=== PATIENT | female | born 1980 | race Caucasian/White ===

== ENCOUNTER 2018-01-21 17:06 | Outpatient (REF) | payer BC, SELFPAY ==
--- NOTE | 2018-01-21 14:45 | PAPFT_PTH ---
PATIENT: Mago Frost LOC: [facility] U#:[id number] AGE/SX: 37/F ROOM: RE01/21/[address]: Sofia Gann NP : 1980 BED: DIS: 01/21/2018 SPEC #: [id number] RECD: 01/21/18 17:17 STATUS: JOSLYN REMargarita #: [id number] TIKI: 01/21/18 14:[address]: Sofia Gann NP DEPT: [facility] Cytology RECD BY: Polina Hong ENTERED: 01/21/18 17:18 SP TYPE: PAPFT OTHR DR: Kaelyn Mckeon MD Tissues: 1 - CX/ENDOCX FOR PAP SMEARS Procedures: PAP THIN PREP/UVM Screening HPV DNA PROBE Comments: [id number]
== END 2018-01-21 17:26 ==
LOC: LBN 17:06
PROVIDERS: PCP Internal Medicine; Referring Provider Nurse Practitioner Women's Health; Visit Provider Nurse Practitioner Women's Health
DX: Z12.4 Encounter for screening for malignant neoplasm of cervix (principal); Z11.51 Encounter for screening for human papillomavirus (HPV)
CPT/HCPCS: 88142; 87624

== ENCOUNTER 2019-06-30 18:55 | Outpatient (REF) | payer BC, SELFPAY | END 2019-06-30 19:15 | LOC: NCHCN 18:55 | PROVIDERS: PCP Nurse Practitioner; Visit Provider Nurse Practitioner Adult Health | DX: J02.9 Acute pharyngitis, unspecified (principal) | CPT/HCPCS: 87070 ==

== ENCOUNTER 2020-01-20 13:59 | Emergency (ER) | payer BC, SELFPAY ==
[2020-01-20 14:10] VITALS: BP 142/97; PULSE 103; RESP 16; TEMP 37.2; O2SAT 100
--- NOTE | 2020-01-20 14:14 | W.ED.GENAD ---
Discharge Plan Disposition Patient Disposition: HOME Condition: Stable Discharge Details Clinical Impression: Closed fracture of distal end of left fibula Primary Care Provider: Marti Perales ED Provider: Ga Gann Home Meds and New Rx's Prescriptions: Continued Mirena 20 mcg/24 hr (5 years) intrauterine device 1 insert IY ONCE Qty: 1 RF: 0 acyclovir 400 mg tablet 400 mg PO BID Qty: 14 RF: 6 acetaminophen 325 MG tablet 325 mg PO PRN PRNRF: 0 omeprazole 20 mg capsule,delayed release(DR/EC) 20 mg PO DAILY Qty: 90 RF: 0 Discharge Instructions Instructions: Leg Fracture (ED) Additional Instructions: call orthopedics for an appointment take 1000mg tylenol and 600mg ibuprofen every 6 hours as needed for pain if severe worsening pain or new pain such as chest pain, abdominal pain or headaches return to the emergency department Referrals: David Champagne MD [ [facility] STAFF PHYSICIAN] - Medical Decision Making 39 yo female who comes in with chief complaint of left ankle pain. Was [place] and stepped into a little incline and tripped causing her to invert the left ankle. Did not hit head or have loc. HAs pain over lateral malleolus, no significant visible or palpable deformity, no significant swelling, does have full rom though with pain. No tenderness in the foot, normal sensation and pulses. Suspect sprain but will xray to evaluate for fx/dislocation xray shows langford a fracture of distal fibula, remains stable and has full rom still. Placed in walking boot and prn crutches and will place on f/u list for orthopedics Differential Diagnosis Differential Diagnosis: sprain, strain, fx Imaging Data Radiologic Study: Attestation: I personally reviewed and interpreted this imaging study as follows: Imaging: X-Ray Radiologist's impression: IMPRESSION: Minimally displaced distal left fibular/lateral malleolar fracture below the level of the talar dome in a somewhat oblique orientation (Langford type A). HPI General Mode of arrival: ambulatory. Date/Time Provider Initiated Documentation: 01/20/20 14:00. Limitations to Documentation: no limitations. Information obtained by: patient. History of Present Illness 39 year old F presents to the emergency department with the chief complaint of left ankle pain, described as moderate, Patient started experiencing this hour(s) (2) and it has been constant. Rest improves symptom(s), Movement worsens symptoms . Patient did receive the following treatments prior to arrival, none Related Data Home Medications Medication Instructions Recorded Confirmed acetaminophen 325 mg PO PRN PRN 07/17/13 01/20/20 levonorgestrel 20 mcg/24 hours (5 1 insert IY ONCE #1 each 01/21/18 01/20/20 yrs) 52 mg intrauterine device acyclovir 400 mg tablet 400 mg PO BID #14 tab-cap 11/30/18 01/20/20 omeprazole 20 mg capsule,delayed 20 mg PO DAILY #90 cap 12/12/19 01/20/20 release Previous Rx's Medication Instructions Recorded levonorgestrel 20 mcg/24 hours (5 1 insert IY ONCE #1 each 01/21/18 yrs) 52 mg intrauterine device acyclovir 400 mg tablet 400 mg PO BID #14 tab-cap 11/30/18 omeprazole 20 mg capsule,delayed 20 mg PO DAILY #90 cap 12/12/19 release Allergies Allergy/AdvReac Type Severity Reaction Status Date / Time No Known Allergies Allergy Verified 01/20/20 14:15 General Stated Complaint: Orthopedic KIKI: 4 Review of Systems All systems reviewed & are unremarkable except as noted in HPI and below Constitutional Constitutional: Denies chills, Denies fever(s) and Denies weakness Cardiovascular Cardiovascular: Denies chest pain and Denies dyspnea Respiratory Respiratory: Denies cough and Denies dyspnea Gastrointestinal Gastrointestinal: Denies abdominal pain, Denies nausea and Denies vomiting Neurologic Neurologic: Denies weakness [facility] Medical History (Updated 01/20/20 @ 14:58 by Ga Gann MD) Daytime somnolence 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 Grandmother Breast cancer Maternal Social History Smoking/Tobacco Use Status: Never Alcohol Intake: current Alcohol Intake frequency: holidays/special occasions only Drug use: Never Substance use type: does not use Adopted: No Household members: spouse and family Housing: house Number of Children: 1 Communication Needs: Corrective Lenses Do you need help understanding health information?: Rarely What is your relationship status?: Panel score (0-1 are the most socially isolated patients): 1 What type of physical activity do you participate in: other Details: very active with 2 year old son Seatbelt use: always Drive intox or ride w/intox 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 Working smoke detector in home: Yes Fire extinguisher in home: Yes Carbon monox detector in home: Yes Do you feel safe at home: Yes Do you feel safe in your relationship?: Yes Female Reproductive History Menstrual control method: progestin IUCD (New Mirena IUD inserted today Lot# [id number] EXP JUN 2020) History History 1 Para Hx # Term Pregnancies 1 Multiple births Hx # Pregnancies Ectopic pregnancies AB induced Hx Number of Living Children AB spontaneous Exam Const General: no acute distress Orientation: alert HENMT Head: normal to inspection Ears: external ears normal General nose exam: external nose normal Mouth: moist mucous membranes Eyes General: appearance normal, both eyes and all related structures Neck Neck: normal visual inspection Resp Effort & Inspection: normal respiratory effort and able to speak in complete sentences Cardio Rate: regular rate Skin General skin exam: no rashes or lesions noted Neuro General: patient alert and patient oriented x3 Extrem General: full ROM and capillary refill normal Psych Mental Status: mental status grossly normal Course Vital Signs Vital signs: Vital Signs Temperature 37.2 C 01/20/20 14:10 Pulse 103 H 01/20/20 14:10 Respiratory Rate 16 01/20/20 14:10 Blood Pressure 142/97 H 01/20/20 14:10 Pulse Oximetry 100 01/20/20 14:10 Temperature 37.2 C 01/20/20 14:10 Temperature Source Skin 01/20/20 14:10 Pulse 103 H 01/20/20 14:10 Respiratory Rate 16 01/20/20 14:10 Blood Pressure 142/97 H 01/20/20 14:10 Blood Pressure Position Sitting 01/20/20 14:10 Pulse Oximetry 100 01/20/20 14:10 Oxygen Delivery Method Room Air 01/20/20 14:10 Oxygen Flow Rate 0 01/20/20 14:10
[2020-01-20] MEDS: Ibuprofen 600 MG TAB PO (14:16)
--- NOTE | 2020-01-20 14:31 | DI.RAD_ITS ---
EXAM: XR ANKLE LT COMPLETE CLINICAL HISTORY: pain s/p trip TECHNIQUE: 2D digital imaging was performed. COMPARISON: No exams were available for comparison FINDINGS: BONES: There is a minimally displaced oblique fracture of the lateral malleolus below the level of th e talar dome. No bony destructive lesion is seen. JOINTS:The ankle mortise is normally aligned. SOFT TISSUE: There is soft tissue swelling about the ankle laterally. IMPRESSION: Minimally displaced oblique fracture of the lateral malleolus below the level of the talar dome. DATA REPOSITORY: RADIATION DOSE DELIVERED:
--- NOTE | 2020-01-20 14:48 | DI.VRAD_ITS ---
PROCEDURE INFORMATION: Exam: XR Left Ankle Exam date and time: 01/20/2020 2:30 PM Age: 39 years old Clinical indication: Other: Pain, S/P trip TECHNIQUE: Imaging protocol: XR Left ankle. Views: 3 or more views. COMPARISON: No relevant prior studies available. FINDINGS: Minimally displaced distal left fibular/lateral malleolar fracture below the level of the talar dome in a somewhat oblique orientation (Villela type A). No other fractures identified. The ankle mortise is intact. No ankle joint effusion. Lateral ankle soft tissue swelling. IMPRESSION: Minimally displaced distal left fibular/lateral malleolar fracture below the level of the talar dome in a somewhat oblique orientation (Villela type A). Dictated and Authenticated by: Joseph Bedolla MD. Ordering:HENRI Koroma MD
--- NOTE | 2020-01-20 22:39 | NUR.NOTE ---
chart opened as requested by lab staff to cancel UA that was ordered by Dr. Gann. UA not found. Nursing Note:
== END 2020-01-20 15:13 | disposition home or self-care (01) ==
PROVIDERS: Emergency Provider Emergency Medicine; PCP Nurse Practitioner
DX: S82.492A Other fracture of shaft of left fibula, initial encounter for closed fracture (principal); X50.9XXA Other and unspecified overexertion or strenuous movements or postures, initial encounter
CPT/HCPCS: 27786; 73610; E0114; L4361

== ENCOUNTER 2020-04-03 00:37 | Outpatient (CLI) | payer BC, SELFPAY ==
--- NOTE | 2020-04-03 08:15 | DI.US_ITS ---
EXAM: US PELVIS TRANSVAGINAL CLINICAL HISTORY: metrorrhagia, IUD surveillence,N92.1,Z30.589 TECHNIQUE: Ultrasound performed using standard protocol. COMPARISON: US OB FU/LIMITED-FACIAL/LVOT/RVOT from 10/01/2016 FINDINGS: Pelvic ultrasound was performed transabdominally and transvaginally. Uterus measures 8.8 x 2.7 x 5.3 cm. Myometrium appears fairly homogeneous. Endometrial stripe is ab out 2 millimeters in thickness and appears homogeneous. There is an IUD seen in the cervical canal. The ovaries have a normal follicular appearance except for a approximately 2 cm in diameter left ovar romeo avascular lesion which is likely to represent a hemorrhagic cyst and which contains intermediate echogenicity. No free fluid identified in the cul-de-sac. The kidneys are unremarkable on limited scanning. IMPRESSION: IUD lies in the cervical canal. Otherwise unremarkable appearance of the uterus. 18 millimeter in diameter probable hemorrhagic left ovarian cyst. Follow-up pelvic ultrasound recomm ended in 4-6 weeks to exclude other etiologies including neoplastic disease. DATA REPOSITORY:
== END 2020-04-03 00:57 ==
PROVIDERS: PCP Nurse Practitioner; Visit Provider Nurse Practitioner Women's Health
DX: N92.1 Excessive and frequent menstruation with irregular cycle (principal); Z30.431 Encounter for routine checking of intrauterine contraceptive device
CPT/HCPCS: 76830; 76856

== ENCOUNTER 2020-04-24 00:32 | Outpatient (CLI) | payer BC, SELFPAY ==
--- NOTE | 2020-04-24 06:30 | DI.US_ITS ---
EXAM: US PELVIS TRANSVAGINAL CLINICAL HISTORY: F/U OVARIAN CYST,N83.209. TECHNIQUE: Transabdominal and transvaginal pelvic ultrasound was performed using standard protocol. COMPARISON: US US PELVIS TRANSVAGINAL from 04/03/2020 FINDINGS: KIDNEYS: Kidneys are symmetric in size. No evidence of renal calculi. No evidence of hydronephrosis. No renal mass or cyst identified. UTERUS: Position: Anteverted. Size: 7.6 long by 3.3 AP by 4.5 transverse cm Endometrium: 0.7 cm. Normal for patient's menstrual status. There has been interval removal of the pa tient's IUD. Myometrium: Unremarkable. Cervix: Nabothian cyst is noted. OVARIES: Right: 3 x 1.7 x 2.2 cm Cyst or mass: Small follicular cysts. There is a 1.9 x 1.6 x 1.9 cm simple cyst which is likely phys iologic. Left: 2.6 x 1.6 x 1.3 cm Cyst or mass: Small follicular cysts are present. There is a 1.2 x 1.1 x 1.1 cm well-circumscribed h ypoechoic avascular lesion on the left ovary. It is shown interval decrease in size compared to the prior examination. DOPPLER: Color: Symmetric and uniform flow to both ovaries. No hyperemia. Duplex: Normal ovarian arterial waveforms visualized. CUL-DE-SAC: Free fluid: None. Other: None. IMPRESSION: 1. Normal sonographic appearance of the kidneys. 2. Normal-appearing uterus with endometrial stripe within normal limits. 3. Interval removal of the IUD. 4. 1.9 cm simple right ovarian cyst which is likely physiologic. 5. Well-circumscribed hypoechoic avascular lesion on the left ovary. Current maximum dimension is 1. 2 cm compared with 1.8 on the prior examination. Follow-up as clinically appropriate. DATA REPOSITORY:
== END 2020-04-24 00:52 ==
PROVIDERS: PCP Nurse Practitioner; Visit Provider Obstetrics & Gynecology Gynecology
DX: N83.291 Other ovarian cyst, right side (principal); N83.8 Other noninflammatory disorders of ovary, fallopian tube and broad ligament
CPT/HCPCS: 76830; 76856

== ENCOUNTER 2021-05-07 01:18 | Outpatient (CLI) | payer OTHER, SELFPAY ==
--- NOTE | 2021-05-07 17:50 | DI.MAMMO_ITS ---
Exam(s) MAMMO SCREENING EXAM: MAMMO SCREENING CLINICAL HISTORY: screening TECHNIQUE: Bilateral full field digital CC and MLO mammographic images were obtained with 3D tomosyn thesis and utilizing computer aided detection (CAD). COMPARISON: None. FINDINGS: Masses/Architectural Distortion: None seen. Microcalcifications: No suspicious pleomorphic-type are seen. Skin Thickening/Nipple Retraction: None. IMPRESSION: 1. No significant interval change with no specific features of malignancy noted. 2. Unless there is more urgent need, screening mammography is recommended, as per [place] [employer] guidelines. BI-RADS Category 1 - Negative Breast Density - Category B - Scattered areas of fibroglandular density Breast density category C or D implies that the patient has dense breast tissue. Dense breast tissue is very common and is not abnormal but dense breast tissue can make it harder to find cancer on a ma mmogram. Also, dense breast tissue may increase their breast cancer risk. This information about the result of the mammogram report was provided to the patient to raise their awareness. Use this report when you speak with the patient about their risks for breast cancer, which includes their family hist ory. At that time, you may recommend for more screening tests (Ultrasound or MRI) as they might be us eful based on their risk. A negative radiographic report should not delay biopsy if a dominant or clinically suspicious mass is present. Up to ten percent of cancers are not identified on mammography. A negative report may reinforce clinical impression. Adenosis and dense breasts may obscure an underlying neoplasm. False positive reports average 6 to 10%. Patient will receive a letter notifying them of these results.
== END 2021-05-07 01:38 ==
PROVIDERS: PCP Nurse Practitioner; Visit Provider Nurse Practitioner Women's Health
DX: Z12.31 Encounter for screening mammogram for malignant neoplasm of breast (principal)
CPT/HCPCS: 77063; 77067

== ENCOUNTER 2021-07-14 10:30 | Outpatient (CLI) | payer OTHER, SELFPAY ==
--- NOTE | 2021-07-14 10:15 | DI.RAD_ITS ---
Exam(s) XR KNEE RT 3V AP,LAT,RACHELLE EXAM: XR KNEE RT 3V AP,LAT,RACHELLE CLINICAL HISTORY: pain s/p fall m25.561 pain rt knee, w19.xxxa fall. TECHNIQUE: 2D digital imaging was performed. Three views COMPARISON: No exams were available for comparison FINDINGS: BONES: No acute fracture is present. No bony destructive lesion is seen. JOINTS: The knee is normally aligned. No joint effusion is seen. SOFT TISSUE: Normal. IMPRESSION: Unremarkable radiographs of the right knee. DATA REPOSITORY: RADIATION DOSE DELIVERED:
== END 2021-07-14 10:50 ==
PROVIDERS: PCP Nurse Practitioner; Visit Provider Nurse Practitioner
DX: M25.561 Pain in right knee (principal); W19.XXXA Unspecified fall, initial encounter
CPT/HCPCS: 73562

== ENCOUNTER 2021-10-23 08:53 | Outpatient (REF) | payer OTHER, SELFPAY ==
--- NOTE | 2021-10-23 08:15 | NASSEP_PTH ---
PATIENT: Mago Frost LOC: [facility] U#:[id number] AGE/SX: 40/F ROOM: RE10/23/[address]: Miki Schmidt MD : 1980 BED: DIS: 10/23/2021 SPEC #: [id number] RECD: 10/23/21 18:16 STATUS: JOSLYN REMargarita #: [id number] TIKI: 10/23/21 08:[address]: Miki Schmidt DEPT: Surgical Specimen RECD BY: Polina Hong ENTERED: 10/23/21 18:18 SP TYPE: NASSEP SHIVAM DR: Marti Perales APRN Tissues: 1 - NASAL SEPTUM Procedures: GROSS AND MICRO LEVEL 4 Comments: [id number]
== END 2021-10-23 08:54 | disposition home or self-care (01) ==
LOC: LBN 08:53
PROVIDERS: PCP Nurse Practitioner; Visit Provider Otolaryngology
DX: D18.09 Hemangioma of other sites (principal)
CPT/HCPCS: 88300; 88305

== ENCOUNTER 2021-12-29 16:19 | Outpatient (REF) | payer OTHER, SELFPAY ==
--- NOTE | 2021-12-29 15:40 | NASALBX_PTH ---
PATIENT: Mago Frost LOC: N U#:[id number] AGE/SX: 41/F ROOM: RE12/29/[address]: Miki Schmidt MD : 1980 BED: DIS: 12/29/2021 SPEC #: [id number] RECD: 12/29/21 18:29 STATUS: JOSLYN REMargarita #: [id number] TIKI: 12/29/21 15:[address]: Miki Schmidt DEPT: Surgical Specimen RECD BY: Polina Hong ENTERED: 12/29/21 18:31 SP TYPE: NASALBX OTHR DR: Marti Perales APRN Tissues: 1 - NASAL SEPTUM Procedures: GROSS AND MICRO LEVEL 4 Comments: [id number]
== END 2021-12-29 16:20 | disposition home or self-care (01) ==
LOC: LBN 16:19
PROVIDERS: PCP Nurse Practitioner; Visit Provider Otolaryngology
DX: J33.9 Nasal polyp, unspecified (principal)
CPT/HCPCS: 88300; 88305

== ENCOUNTER 2022-06-24 17:34 | Outpatient (REF) | payer OTHER, SELFPAY ==
--- NOTE | 2022-06-24 15:10 | PAPFT_PTH ---
PATIENT: Mago Frost LOC: [facility] U#:[id number] AGE/SX: 41/F ROOM: RE06/24/[address]: Sofia Gann NP : 1980 BED: DIS: 06/24/2022 SPEC #: [id number] RECD: 06/24/22 18:23 STATUS: JOSLYN REMargarita #: [id number] TIKI: 06/24/22 15:[address]: Sofia Gann NP DEPT: [facility] Cytology RECD BY: Polina Hong ENTERED: 06/24/22 18:24 SP TYPE: PAPFT OTHR DR: Marti Perales APRN Tissues: 1 - CX/ENDOCX FOR PAP SMEARS Procedures: PAP THIN PREP/UVM Screening HPV DNA PROBE Comments: [id number]
== END 2022-06-24 17:35 | disposition home or self-care (01) ==
LOC: LBN 17:34
PROVIDERS: PCP Nurse Practitioner; Visit Provider Nurse Practitioner Women's Health
DX: Z12.4 Encounter for screening for malignant neoplasm of cervix (principal); Z11.51 Encounter for screening for human papillomavirus (HPV)
CPT/HCPCS: 88142; 87624

== ENCOUNTER 2022-11-09 01:10 | Outpatient (CLI) | payer OTHER, SELFPAY ==
--- NOTE | 2022-11-09 08:15 | DI.MAMMO_ITS ---
Exam(s) MAMMO SCREENING EXAM: MAMMO SCREENING CLINICAL HISTORY: screening,Z12.39. TECHNIQUE: Bilateral full field digital CC and MLO mammographic images were obtained with 3D tomosyn thesis and utilizing computer aided detection (CAD). COMPARISON: Prior mammograms were reviewed. FINDINGS: No new findings in the left breast. In the right breast there is a asymmetric density possible nodule located 12 cm in from the nipple, l ateral of center and measuring 5 x 4 mm. Requires further imaging. There are no malignant-appearing microcalcification groups is region or elsewhere in either breast There is no significant architectural distortion nor skin thickening-retraction. IMPRESSION: 1. No radiographic evidence of malignancy in left breast. 2. Asymmetric density posteriorly in the right breast. Possible nodule. Spot compression view and u ltrasound recommended. BI-RADS Category 0 - Assessment Incomplete: Need additional imaging evaluation Breast Density - Category B - Scattered areas of fibroglandular density Breast density Category C or D implies that the patient has dense breast tissue. Dense breast tissue can make it harder to find cancer on a mammogram. Dense breast tissue is also associated with an incr eased risk of breast cancer. This information about the result of the mammogram report was provided to the patient to raise their awareness. Use this report when you speak with the patient about their risks for breast cancer, which includes their family history. At that time, you may recommend additional screening tests (Ultrasoun d or MRI) as these tests may add significant information. A negative radiographic report should not delay biopsy if a dominant or clinically suspicious mass is present. Up to ten percent of cancers are not identified on mammography. A negative report may reinforce clinical impression. Adenosis and dense breasts may obscure an underlying neoplasm. False positive reports average 6 to 10%. Patient will receive a letter notifying them of these results.
== END 2022-11-09 01:30 ==
LOC: DI 01:10
PROVIDERS: PCP Nurse Practitioner; Visit Provider Nurse Practitioner Women's Health
DX: Z12.31 Encounter for screening mammogram for malignant neoplasm of breast (principal); R92.8 Other abnormal and inconclusive findings on diagnostic imaging of breast
CPT/HCPCS: 77063; 77067

== ENCOUNTER 2022-11-13 00:40 | Outpatient (CLI) | payer OTHER, SELFPAY ==
--- NOTE | 2022-11-13 | DI.US_ITS ---
Exam(s) MG MAMMO SCREEN CALL BACK UNI US BREAST RT COMPLETE EXAM: MG MAMMO SCREEN CALL BACK UNI-RIGHT AND COMPLETE RIGHT BREAST ULTRASOUND CLINICAL HISTORY: F/U MAMMO, R92.8,RT ASYMMETRIC DENSITY,? NODULE. TECHNIQUE: Unilateral RIGHT BREAST spot mammographic images obtained with 3D tomosynthesisand utiliz ing computer aided detection (CAD). . Complete RIGHT breast Ultrasound was also performed, including all 4 quadrants, the retroareolar homar on, and the ipsilateral axilla. COMPARISON: Prior mammograms were reviewed. This additional imaging was performed due to findings described on the recent screening mammogram of 11/09/2022. FINDINGS: DIAGNOSTIC MAMMOGRAM: Additional mammographic views performed todayrender this area less concerning. COMPLETE RIGHT BREAST ULTRASOUND: Ultrasound performed today reveals no evidence of solid or significant cystic lesions. This is furth er evidence that the finding described on the recent screening mammogram is benign.. Scanning of the ipsilateral axilla reveals no significant adenopathy. IMPRESSION: 1. No radiographic evidence of malignancy in the right breast. 2. Negative complete right breast ultrasound Appropriate follow-up is repeat right breast mammogram in 6 months.. The patient was informed of these findings and recommendations prior to leaving the department today. BI-RADS Category 3 - 6 month - Probably Benign Finding: Recommend follow-up mammography in 6 months Breast Density - Category B - Scattered areas of fibroglandular density Breast density Category C or D implies that the patient has dense breast tissue. Dense breast tissue can make it harder to find cancer on a mammogram. Dense breast tissue is also associated with an incr eased risk of breast cancer. This information about the result of the mammogram report was provided to the patient to raise their awareness. Use this report when you speak with the patient about their risks for breast cancer, which includes their family history. At that time, you may recommend additional screening tests (Ultrasoun d or MRI) as these tests may add significant information. A negative radiographic report should not delay biopsy if a dominant or clinically suspicious mass is present. Up to ten percent of cancers are not identified on mammography. A negative report may reinforce clinical impression. Adenosis and dense breasts may obscure an underlying neoplasm. False positive reports average 6 to 10%. Patient will receive a letter notifying them of these results.
== END 2022-11-13 01:00 ==
LOC: DI 00:41
PROVIDERS: PCP Nurse Practitioner; Visit Provider Nurse Practitioner Women's Health
DX: Z12.31 Encounter for screening mammogram for malignant neoplasm of breast (principal); R92.8 Other abnormal and inconclusive findings on diagnostic imaging of breast
CPT/HCPCS: 76642; 77063; 77067

== ENCOUNTER → 2023-05-21 00:02 | Outpatient (CLI) | payer BC, SELFPAY ==
--- NOTE | 2023-05-21 08:00 | DI.MAMMO_ITS ---
Exam(s) MAMMO DIAGNOSTIC UNI EXAM: MAMMO DIAGNOSTIC UNI-RIGHT CLINICAL HISTORY: 6 month f/u,abnl mammo, r92.8. TECHNIQUE: BOTH CC AND MLO mammographic images OF THE RIGHT BREAST were obtained with 3D tomosynthes is technique and utilizing computer aided detection (CAD). ALSO performed spot compression view of the previously described area of concern in the posterolatera l right breast. COMPARISON: Prior mammograms were reviewed, the most recent being October 2022. Ultrasound at that consuelo e was also reviewed (which was negative).. FINDINGS: DIAGNOSTIC RIGHT BREAST MAMMOGRAM: The previously described asymmetric density has a less concerning appearance on the present mammogram . There are no new spiculated masses nor malignant-appearing microcalcification groups in the right kushal ast. No new architectural distortion or skin thickening-traction. Do not feel that repeat ultrasound examination is required this time. IMPRESSION: No radiographic evidence of malignancy in the right breast Appropriate follow-up is to keep this patient on her yearly mammogram schedule, with earlier imaging if a self detected breast change is noted.. The patient was informed of the findings and follow-up recommendations by myself prior to leaving the department today. BI-RADS Category 2 - Benign Findings Breast Density - Category B - Scattered areas of fibroglandular density Breast density Category C or D implies that the patient has dense breast tissue. Dense breast tissue can make it harder to find cancer on a mammogram. Dense breast tissue is also associated with an incr eased risk of breast cancer. This information about the result of the mammogram report was provided to the patient to raise their awareness. Use this report when you speak with the patient about their risks for breast cancer, which includes their family history. At that time, you may recommend additional screening tests (Ultrasoun d or MRI) as these tests may add significant information. A negative radiographic report should not delay biopsy if a dominant or clinically suspicious mass is present. Up to ten percent of cancers are not identified on mammography. A negative report may reinforce clinical impression. Adenosis and dense breasts may obscure an underlying neoplasm. False positive reports average 6 to 10%. Patient will receive a letter notifying them of these results.
== END ==
PROVIDERS: PCP Nurse Practitioner; Visit Provider Nurse Practitioner Women's Health
DX: R92.8 Other abnormal and inconclusive findings on diagnostic imaging of breast (principal); Z12.31 Encounter for screening mammogram for malignant neoplasm of breast
CPT/HCPCS: 77061; 77065; G0279

== ENCOUNTER 2024-03-11 13:09 | Outpatient (REF) | payer BC, SELFPAY | END 2024-03-11 13:10 | disposition home or self-care (01) | LOC: LBN 13:09 | PROVIDERS: PCP Nurse Practitioner; Visit Provider Nurse Practitioner Family | DX: H10.32 Unspecified acute conjunctivitis, left eye (principal); T14.8XXA Other injury of unspecified body region, initial encounter | CPT/HCPCS: 87070; 87205 ==

== ENCOUNTER 2024-08-14 00:58 | Outpatient (CLI) | payer BC, SELFPAY ==
--- NOTE | 2024-08-14 15:15 | DI.MAMMO_ITS ---
Exam(s) MAMMO SCREENING EXAM: MAMMO SCREENING CLINICAL HISTORY: screening. TECHNIQUE: Bilateral full field digital CC and MLO mammographic images were obtained with 3D tomosyn thesis and utilizing computer aided detection (CAD). COMPARISON: Prior mammograms were reviewed. FINDINGS: There has been no significant change in the appearance and distribution of the fibroglandular tissue. There are no new spiculated masses nor malignant appearing microcalcification groups. There is no significant architectural distortion nor skin thickening-retraction. IMPRESSION: No radiographic evidence of malignancy. BI-RADS Category 1 - Negative Breast Density - Category B - Scattered areas of fibroglandular density Breast density Category C or D implies that the patient has dense breast tissue. Dense breast tissue can make it harder to find cancer on a mammogram. Dense breast tissue is also associated with an incr eased risk of breast cancer. This information about the result of the mammogram report was provided to the patient to raise their awareness. Use this report when you speak with the patient about their risks for breast cancer, which includes their family history. At that time, you may recommend additional screening tests (Ultrasoun d or MRI) as these tests may add significant information. A negative radiographic report should not delay biopsy if a dominant or clinically suspicious mass is present. Up to ten percent of cancers are not identified on mammography. A negative report may reinforce clinical impression. Adenosis and dense breasts may obscure an underlying neoplasm. False positive reports average 6 to 10%. Patient will receive a letter notifying them of these results.
== END 2024-08-14 01:18 ==
LOC: DI 00:58
PROVIDERS: PCP Nurse Practitioner; Visit Provider Nurse Practitioner Women's Health
DX: Z12.31 Encounter for screening mammogram for malignant neoplasm of breast (principal); R92.323 Mammographic fibroglandular density, bilateral breasts
CPT/HCPCS: 77063; 77067